=== PATIENT | male | born 1955 | race Two or more races ===

== ENCOUNTER 2020-02-12 22:23 | Emergency (ER) | payer SELFPAY ==
[~2020-02-12] VITALS: Ht 165.1 cm; Wt 83.9 kg
--- NOTE | 2020-02-12 22:41 | Emergency Department Note ---
History of Present Illnes History of Present Illness Chief Complaint: General Medicine Complaints History of Present Illness This is a 65 year old Other male WITH H/O GOUT WHO PRESENTS WITH C/O PAIN AND SWELLING TO LEFT GREAT TOE FOR PAST 5 DAYS. PT IS ON ALLOPURINOL. Historian: Patient Arrival Mode: Car Onset (how long ago): day(s) (5) Location: LEFT GREAT TOE Quality: PAIN AND SWELLING Radiation: non-radiation Severity: moderate Onset quality: gradual Duration (how long): day(s) (5) Timing of current episode: constant Progression: worsening Relieving factors: none Exacerbating factors: none Treatments prior to arrival: none Past Medical/Family History Physician Review I have reviewed the patient's past medical and family history. Any updates have been documented here. Past Medical History Recent Fever: No Clinical Suspicion of Infectio: No New/Unexplained Change in Ment: No Other Medical History: hypothyroidism, GOUT Past Surgical History: Cholecysctectomy, Appendectomy Social History Smoking Cessation: Never Smoker Alcohol Use: None Any Illegal Drug Use: No Family History Family history of heart diseas: No Other Last Tetanus: utd Review of Systems Review of Systems Constitutional: no symptoms EENTM: no symptoms Cardiovascular: no symptoms Respiratory: no symptoms Gastrointestinal: no symptoms Genitourinary: no symptoms Musculoskeletal: as per HPI Neurological: no symptoms Psychological: no symptoms Endocrine: no symptoms Hematological/Lymphatic: no symptoms Review of other systems All other systems reviewed and negative. Physical Exam Related Data Triage Vital Signs Vital Signs Date Time Temp Pulse Resp B/P (MAP) Pulse Ox O2 Delivery O2 Flow Rate FiO2 02/12/20 22:28 97.8 76 16 155/92 100 Vital signs reviewed: Yes Physical Exam CONSTITUTIONAL Constitutional: well-developed, well-nourished HENT HENT: normocephalic, atraumatic, oropharynx clear/moist, nose normal HENT L/R: left ext ear normal, right ext ear normal EYES Eyes: PERRL, conjunctivae normal NECK Neck: ROM normal PULMONARY Pulmonary: effort normal, breath sounds normal CARDIOVASCULAR Cardiovascular: regular rhythm, heart sounds normal, capillary refill normal, normal rate GASTROINTESTINAL Abdominal: soft, nontender, bowel sounds normal GENITOURINARY Genitourinary: exam deferred SKIN Skin: warm, dry MUSCULOSKELETAL Musculoskeletal: ROM normal, tenderness (MP LEFT GREAT TOE), swelling (MP LEFT GREAT TOE) NEUROLOGICAL Neurological: alert, oriented x 3, no gross motor or sensory deficits PSYCHOLOGICAL Psychological: mood/affect normal, judgement normal Critical Care Time Subsequent provider I assumed direction of critical care for this patient from another provider of my specialty. Assessment & Plan Assessment & Plan Problems: (1) Gout Assessment & Plan PT WITH GOUT FLARE, PRESCRIPTION FOR INDOCIN 50 MG PO Q 8 HOURS PRN PAIN Depart Disposition: HOME, SELF-CARE Last Vital Signs Date Time Temp Pulse Resp B/P (MAP) Pulse Ox O2 Delivery O2 Flow Rate FiO2 02/12/20 22:28 97.8 76 16 155/92 100 SALBADOR SERNA MD February 12, 2020 22:41
== END 2020-02-12 22:41 | disposition home or self-care (01) ==
LOC: ER 22:23
DX: M79.675 Pain in left toe(s) (principal); M10.9 Gout, unspecified
CPT/HCPCS: 99282